=== PATIENT | female | born 1975 | race Caucasian/White ===

== ENCOUNTER → 2018-06-11 15:45 | Outpatient (CLI) | payer OTHER, SELFPAY ==
--- NOTE | 2018-06-11 15:57 | CT_ITS ---
STUDY: CT ABDOMEN AND PELVIS WITHOUT CONTRAST REASON FOR EXAM: Female, 42 years old. Right lower abdominal pain RADIATION DOSAGE (If Supplied By Facility): CTDIvol = ( 8.33 ) mGy, DLP = ( 370.94 ) mGycm TECHNIQUE: Transaxial images were obtained from the dome of the diaphragm to the symphysis pubis without oral contrast, and without intravenous contrast. Sagittal and coronal images were reconstructed. Individualized dose optimization techniques were used for this CT. COMPARISON: None. FINDINGS: The visualized lung bases are unremarkable. The visualized portions of the heart are within normal limits. Normal liver. There are surgical clips in the gallbladder fossa consistent with a prior cholecystectomy. Normal spleen. Normal pancreas. Normal bilateral adrenal glands. Normal right kidney. Normal left kidney. Normal visualized stomach. Normal small intestine. Retained stool noted throughout the colon. There is non-visualization of the appendix. Normal abdominal aorta. Normal inferior vena cava. Normal retroperitoneum. Normal urinary bladder. Normal-appearing uterus. There has been previous tubal ligation. There is a small amount of free fluid in the dependent pelvis Normal abdominal wall. Normal osseous structures. CT/Abdomen/Pelvis without Cont IMPRESSION: No suspicious solid organ abnormality No free intraperitoneal fluid, air, or suspicious adenopathy Retained stool in the colon Minimal amount of free fluid in the dependent pelvis, likely physiologic Electronically Signed: Braden Kelly MD at 16:31 EDT , Service support ,
[2018-06-11 17:20] LABS: Absolute Lymphocyte Count 2.68 X10^3/ul (0.83-4.51); Absolute Neutrophil Count 2.8 X10^3/uL (2.0-7.7); Basophil# 0.02 X10^3/uL; Basophil% 0.3 % (0-1); Eosinophil# 0.07 X10^3/uL; Eosinophils% 1.1 % (0-5); Hematocrit 44.4 % (37-47); Hemoglobin 14.7 g/dl (12.0-15.0); Lymphocyte # 2.68 X10^3/ul (4.0); Lymphocyte % 43.8 % (19-41); Mean Corp Hgb Conc 33.1 g/gl (32-36); Mean Corpuscular Hgb 30.6 pg (27.0-32.0); Mean Corpuscular Volume 92.5 fL (81-99); Mean Platelet Vol. 9.8 fl (6.2-12.0); Monocyte# 0.59 X10^3/uL; Monocyte% 9.6 % (0-10); Neutrophil # 2.76 X10^3/uL (2.7-7.7); Neutrophil % 45.2 % (47-70); Platelet Count 271 K/mm3 (150-450); RBC Distribution Width CV 12.7 % (11.6-14.6); RBC Distribution Width SD 42.7 fl (35.1-43.9); White Blood Count 6.1 K/mm3 (4.4-11.0)
[2018-06-11 17:22] LABS: POSITIVE COUNT NO; POSITIVE DIFFERENTIAL NO; POSITIVE MORPHOLOGY NO
[2018-06-11 18:04] LABS: ALB/GLOB Ratio 1.1 RATIO (0.9-2.4); AST(SGOT) 16 U/L (15-37); Alanine Aminotransfer ALT/SGPT 20 U/L (13-56); Albumin, Serum 3.9 g/dL (3.2-5.0); Alkaline Phosphatase 56 U/L (45-117); Anion Gap 9 (5-15); BUN 13 mg/dL (7-18); BUN/Creat Ratio 17.7 RATIO (10-20); Calcium,Total 8.7 mg/dL (8.5-10.1); Chloride 105 mmol/L (98-107); Creatinine, Serum 0.74 mg/dL (0.55-1.02); EST Glomerular Filtration Rate 91 mL/min (>60); Est Glom Filt Rate - Afr Amer 111 mL/min (>60); Globulin 3.5 g/dL (2.2-4.2); Glucose 79 mg/dL (74-106); Potassium 3.8 mmol/L (3.5-5.1); Protein, Total 7.4 g/dL (6.4-8.2); Sodium Level 142 mmol/L (136-145)
== END ==
PROVIDERS: Family Provider Internal Medicine; PCP Internal Medicine; Visit Provider Internal Medicine
DX: R10.31 Right lower quadrant pain (principal)
CPT/HCPCS: 36415; 74176; 80053; 85025; 87086

== ENCOUNTER → 2018-06-12 12:28 | Outpatient (CLI) | payer OTHER, SELFPAY | PROVIDERS: Family Provider Internal Medicine; PCP Internal Medicine; Visit Provider Internal Medicine | DX: R10.31 Right lower quadrant pain (principal) | CPT/HCPCS: 76830; 76856; 93976 ==

== ENCOUNTER → 2018-06-13 12:23 | Outpatient (CLI) | payer OTHER, SELFPAY ==
[2018-06-13 12:29] LABS: Absolute Lymphocyte Count 1.79 X10^3/ul (0.83-4.51); Absolute Neutrophil Count 2.5 X10^3/uL (2.0-7.7); Basophil# 0.02 X10^3/uL; Basophil% 0.4 % (0-1); Eosinophil# 0.04 X10^3/uL; Eosinophils% 0.9 % (0-5); Hematocrit 45.8 % (37-47); Hemoglobin 15.5 g/dl (12.0-15.0); Lymphocyte # 1.79 X10^3/ul (4.0); Lymphocyte % 39.1 % (19-41); Mean Corp Hgb Conc 33.8 g/gl (32-36); Mean Corpuscular Hgb 31.1 pg (27.0-32.0); Mean Platelet Vol. 9.4 fl (6.2-12.0); Monocyte# 0.27 X10^3/uL; Monocyte% 5.9 % (0-10); Neutrophil # 2.46 X10^3/uL (2.7-7.7); Neutrophil % 53.7 % (47-70); Platelet Count 280 K/mm3 (150-450); RBC Distribution Width CV 12.4 % (11.6-14.6); RBC Distribution Width SD 41.4 fl (35.1-43.9); Red Blood Count 4.98 M/mm3 (4.2-5.4); White Blood Count 4.6 K/mm3 (4.4-11.0)
[2018-06-13 12:32] LABS: Erythrocyte Sedimentation Rate 2 mm/hr (0-20)
[2018-06-13 12:33] LABS: POSITIVE COUNT NO; POSITIVE DIFFERENTIAL NO; POSITIVE MORPHOLOGY NO
[2018-06-13 12:57] LABS: CRP < 2.90 mg/L (0.0-3.0)
== END ==
PROVIDERS: Family Provider Internal Medicine; PCP Internal Medicine; Visit Provider Internal Medicine
DX: R10.31 Right lower quadrant pain (principal)
CPT/HCPCS: 85025; 85652; 86140

== ENCOUNTER → 2019-02-24 13:09 | Outpatient (CLI) | payer SELFPAY ==
--- NOTE | 2019-02-24 13:15 | CT_ITS ---
STUDY: CARDIAC CALCIUM SCORING - CT CHEST REASON FOR EXAM: Female, 43 years old. Coronary calcium screening, over read. RADIATION DOSAGE (If Supplied By Facility): DLP = ( 219.42 ) mGycm TECHNIQUE: Axial non-enhanced images were acquired through the heart for the sole purpose of measuring coronary artery calcium. Individualized dose optimization techniques were used for this CT. COMPARISON: None. FINDINGS: Body wall soft tissues: No acute process. Upper abdomen: Cholecystectomy. Right adrenal nodule measuring 3.1 cm, central density 27 Hounsfield units. This cannot be reliably characterized as a benign lipid rich adrenal adenoma based on density characteristics. The left adrenal gland is normal. Follow-up characterization of the right adrenal gland with adrenal MRI is recommended. Osseous structures: No acute process. Minimal spondylosis. Mediastinum: Normal esophagus. No visualized mass or lymphadenopathy. Lungs: Evaluated portions of the lungs and airways exhibits no acute process. There is minimal subpleural reticulation in the lower lungs bilaterally which may be a manifestation of smoking history. Clinically correlate smoking history. There is no significant pulmonary hyperlucency and there are no visible features of emphysema. Aorta: Nondilated. Pulmonary arteries: Nondilated. IVC and SVC: Normal. Pulmonary veins normal. Heart: Normal cardiac size without pericardial effusion. Minimal calcification of the aortic valve leaflets and annulus. Coronary arteries: The right and left coronary arteries each emerge from the appropriate coronary sinus with right coronary dominance to the PDA. No visible coronary calcifications. CT/Limited Chest CT w/CCTA IMPRESSION: The coronary calcium score is reported under separate cover with cardiology. Please see that report. No acute thoracic process is evident. Right adrenal nodule, incompletely characterized. Follow-up adrenal MRI is recommended. Electronically Signed: Dante Olson MD at 15:27 EDT Tel , Service support ,
[2019-02-24 13:29] VITALS: BP 116/69; PULSE 66; RESP 16; O2SAT 99; BMI 25.7
--- NOTE | 2019-02-24 17:08 | CA.SCORE ---
Calcium Scoring Date of Study:: 02/24/19 Coronary Calcium Scoring: High-resolution Computed Tomographic imaging of the chest was performed on 02-14-19, with particular attention paid to the coronary arteries. Images from the examination were analyzed for the presence and extent of coronary artery calcification , using coronary calcium quantification software. The patient tolerated the procedure well and there were no complications. The results of the coronary calcification analysis are provided below. - Findings Left Main (LM): 0 Left Anterior Descending (LAD): 0 Left Circumflex (LCX): 0 Right Coronary Artery (RCA): 0 Total Agatston Score: 0 Percentile Rankin - 50% of people the same gender and similar age had the same or lower score - Conclusion Calcium Scoring Interpretation: Calcium Score Interpretation 0 No identifiable atherosclerotic plaque. Very low cardiovascular disease risk. <5% chance of presence coronary artery disease A Negative Examination 1-10 Minimal Plaque burden. Significant coronary artery disease very unlikely. 11-100 Mild plaque burden. Likely mild or minimal coronary atherosclerosis. 101-400 Moderate plaque burden Moderate non-obstructive coronary artery disease highly likely. Over 400 Extensive plaque burden. High likelihood of at least one significant coronary stenosis (>50% diameter) Calcium Score: 0 Negative Examination - Continue cardiovascular risk factor evaluation and care as deemed appropriate
== END ==
PROVIDERS: Family Provider Internal Medicine; PCP Internal Medicine; Referring Provider Internal Medicine; Visit Provider Internal Medicine
DX: Z82.49 Family history of ischemic heart disease and other diseases of the circulatory system (principal)
CPT/HCPCS: 75571; 76380

== ENCOUNTER → 2019-03-10 | Outpatient (CLI) | payer OTHER, SELFPAY ==
[2019-02-24 13:29] VITALS: BMI 25.7
--- NOTE | 2019-03-10 09:47 | RAD_ITS ---
STUDY: X-RAY - RIGHT FOOT CLINICAL: Female, 43 years old. Right foot pain TECHNIQUE: 3 view(s) of the foot. COMPARISON: None. FINDINGS: Normal talus, calcaneus, and tarsal bones. Normal visualized subtalar, talonavicular, calcaneocuboid, tarsal and tarsometatarsal articulations. Normal metatarsi. Normal metatarsophalangeal joint of the great toe. Normal tibial and fibular sesamoid bones. Normal interphalangeal joint of the great toe. Normal phalanges of the great toe. Normal second through fifth metatarsophalangeal joints. Normal interphalangeal joints and phalanges of the lesser toes. The soft tissue structures are unremarkable. RAD/Foot min 3 Views IMPRESSION: Normal x-ray examination of the foot. Electronically Signed: Haile Rajput DO at 17:44 EDT Tel , Service support ,
== END | disposition home or self-care (01) ==
LOC: HPRAD 09:45
PROVIDERS: Family Provider Internal Medicine; PCP Internal Medicine; Referring Provider Internal Medicine; Visit Provider Internal Medicine
DX: S99.929A Unspecified injury of unspecified foot, initial encounter (principal)
CPT/HCPCS: 73630

== ENCOUNTER → 2019-03-30 06:48 | Outpatient (CLI) | payer OTHER, SELFPAY ==
[2019-02-24 13:29] VITALS: BMI 25.7
--- NOTE | 2019-03-30 06:52 | MRI_ITS ---
STUDY: MRI ABDOMEN WITHOUT CONTRAST REASON FOR EXAM: Female, 43 years old. Adrenal mass, follow-up CT scan. TECHNIQUE: Standardized fat and water weighted pulse sequences were obtained in all 3 orthogonal planes. COMPARISON: CT coronary calcium scoring 02/24/2019. CT abdomen and pelvis 06/11/2018 FINDINGS: Body wall soft tissues: No acute process. Osseous structures: No acute process. Inferior chest: No acute process. Hepatobiliary: No acute process. Pancreas: No acute process. Spleen: No acute process. Kidneys: Evaluated portions exhibit no acute process. Retroperitoneum: No mass or lymphadenopathy. Stomach: Normal. Bowel: Evaluated portions of the small and large bowel exhibits no acute process. There is a moderately prominent distributed stool burden of large bowel, somewhat conspicuous. Correlate for any symptoms of constipation. Adrenal glands: Normal. There is no adrenal nodule. The appearance on the CT coronary calcium examination was deceiving. The inferior portion of the scan terminated with a partial view of the right adrenal gland and a partial view of the right renal superior pole immediately adjacent. This gave the impression of the right adrenal nodule. MRI/Abdomen without Contrast IMPRESSION: There is no adrenal nodule. No other acute abdominal process is evident. Electronically Signed: Dante Olson MD at 16:00 EDT Tel , Service support ,
== END ==
PROVIDERS: Family Provider Internal Medicine; PCP Internal Medicine; Referring Provider Internal Medicine; Visit Provider Internal Medicine
DX: E27.9 Disorder of adrenal gland, unspecified (principal)
CPT/HCPCS: 74181

== ENCOUNTER → 2019-08-28 11:58 | Outpatient (CLI) | payer OTHER, SELFPAY ==
[2019-02-24 13:29] VITALS: BMI 25.7
[2019-08-28 12:02] LABS: Red Blood Cells-Urine 0 SEEN /hpf (0-5); White Blood Cells 0 SEEN /hpf (0-5)
[2019-08-28 12:08] LABS: Erythrocyte Sedimentation Rate 4 mm/hr (0-20)
[2019-08-28 12:14] LABS: Color, Urine Yellow (Yellow); Glucose, Dipstick Normal (Normal); Leukocyte Esterase-Dipstick Negative /ul (Negative); Nitrite-Dipstick Negative (Negative); Occult Blood-Urine Negative /ul (Negative); Protein-Dipstick Negative (Negative); Specific Gravity, Urine 1.015 (1.002-1.030); Urine Bilirubin Dipstick Negative (Negative); Urine Clarity Sl. Cloudy (Clear); Urine Urobilinogen Normal (Normal)
[2019-08-28 12:29] LABS: Ketone-Dipstick 150 mg/dl (Negative)
[2019-08-28 12:31] LABS: Hematocrit 44.1 % (37-47); Mean Corpuscular Hgb 31.3 pg (27.0-32.0); Mean Corpuscular Volume 91.9 fL (81-99); Mean Platelet Vol. 9.9 fl (6.2-12.0); Platelet Count 272 K/mm3 (150-450); RBC Distribution Width CV 11.9 % (11.6-14.6); RBC Distribution Width SD 40.1 fl (35.1-43.9); White Blood Count 5.4 K/mm3 (4.4-11.0)
[2019-08-28 12:38] LABS: D-Dimer Quantitative (DVT/PE) 0.27 FEU/ug/m (0.27-0.49)
[2019-08-28 12:40] LABS: Bacteria 2+ /hpf (None Seen); Mucous, Urine 1+ /hpf (<or=2+); Squamous Epithelial Cells - UA 0-5 SEEN /hpf (5-10)
[2019-08-28 12:48] LABS: ALB/GLOB Ratio 1.2 RATIO (0.9-2.4); AST(SGOT) 18 U/L (15-37); Alanine Aminotransfer ALT/SGPT 19 U/L (13-56); Albumin, Serum 4.1 g/dL (3.2-5.0); Alkaline Phosphatase 48 U/L (45-117); Anion Gap 8 (5-15); BUN 12 mg/dL (7-18); BUN/Creat Ratio 18.6 RATIO (10-20); CRP < 2.90 mg/L (0.0-3.0); Calcium,Total 8.7 mg/dL (8.5-10.1); Chloride 104 mmol/L (98-107); Cholesterol 269 mg/dL (200); Creatinine, Serum 0.64 mg/dL (0.55-1.02); EST Glomerular Filtration Rate 106 mL/min (>60); Est Glom Filt Rate - Afr Amer 128 mL/min (>60); Globulin 3.5 g/dL (2.2-4.2); Glucose 71 mg/dL (74-106); High Density Lipoprotein 72 mg/dL; Potassium 3.6 mmol/L (3.5-5.1); Protein, Total 7.6 g/dL (6.4-8.2); Sodium Level 138 mmol/L (136-145); Thyroid Stim Hormone (TSH) 1.54 uIU/mL (0.358-3.74); Triglycerides 63 mg/dL; Very Low Density Lipoprotein 13 mg/dL (5-40); Vitamin B12 645 pg/mL (211-911); Vitamin D,25 Hydroxy 30.7 ng/mL (29.95-100.01)
== END ==
PROVIDERS: PCP Internal Medicine; Visit Provider Internal Medicine
DX: E78.00 Pure hypercholesterolemia, unspecified (principal); R53.83 Other fatigue; R07.9 Chest pain, unspecified
CPT/HCPCS: 80053; 80061; 81001; 82306; 82607; 84443; 84484; 85027; 85379; 85652; 86140

== ENCOUNTER → 2019-12-01 13:10 | Outpatient (CLI) | payer OTHER, SELFPAY ==
[2019-12-01 13:03] VITALS: BMI 25.7
--- NOTE | 2019-12-01 13:11 | RAD_ITS ---
STUDY: X-RAY - RIGHT ELBOW REASON FOR EXAM: Female, 44 years old. INCREASING MEDIAL ELBOW PAIN TECHNIQUE: 3 view(s) of the elbow. COMPARISON: None. FINDINGS: Normal visualized humerus, radius and ulna. Normal radiocapitellar and ulnotrochlear articulations. The soft tissue structures are unremarkable. RAD/Elbow min 3 Views IMPRESSION: Normal x-ray examination of the elbow. Electronically Signed: Javier Holley, at 13:50 EST , Service support ,
== END ==
PROVIDERS: PCP Internal Medicine; Referring Provider Orthopaedic Surgery; Visit Provider Orthopaedic Surgery
DX: M25.529 Pain in unspecified elbow (principal)
CPT/HCPCS: 73080

== ENCOUNTER → 2021-01-17 07:41 | Outpatient (CLI) | payer OTHER, SELFPAY ==
[2020-03-10 08:11] VITALS: BMI 25.7
--- NOTE | 2021-01-17 07:44 | BI_ITS ---
MAMMOGRAPHY - BILATERAL SCREENING 3-D TOMOSYNTHESIS REASON FOR EXAM: Female, 45 years old. SCREENING PERTINENT HISTORY: No significant family history. TECHNIQUE: 2-D mammograms and 3-D Tomosynthesis of the breast (s) were performed. CAD was performed. COMPARISON: 2018 FINDINGS: The breast composition is heterogeneously dense that can obscure small breast masses. Scattered benign calcifications are seen. No dense spiculated masses or suspicious microcalcifications are identified. No architectural distortion is identified. There is no skin thickening or retraction. There has been no significant change since the prior study. BI/SCRN MAMM (CAD)W/JONH BILAT IMPRESSION: No mammographic signs of malignancy. Routine yearly mammograms recommended. ASSESSMENT CATEGORY: BIRADS Category 2: Benign. A letter regarding these results will be sent to the patient by the facility within 30 days. FOLLOW UP RECOMMENDATION: Yearly follow up mammogram recommended. (A) Approximately 10% of breast cancers are not detected by mammography. A normal mammogram should not delay biopsy of a clinically suspicious abnormality. Electronically Signed: Braden Kelly MD at 9:13 EDT , Service support ,
== END ==
PROVIDERS: PCP Internal Medicine; Referring Provider Internal Medicine; Visit Provider Internal Medicine
DX: Z12.31 Encounter for screening mammogram for malignant neoplasm of breast (principal)
CPT/HCPCS: 77063; 77067

== ENCOUNTER 2022-04-12 13:22 | Day surgery (SDC) | payer OTHER, SELFPAY ==
[2022-04-12] VITALS (8 sets, daily range): BP systolic 101–113; BP diastolic 68–84; PULSE 54–65; RESP 15–18; TEMP 36.8–37.2; O2SAT 99–100; BMI 28.8
[2022-04-12] MEDS: Lactated Ringers 1,000 ML 15 ML IV (13:58)
[2022-04-12 14:00] LABS: Internal QC Validated? YES +Cl - CLEAR BKGD; Pregnancy, Urine Negative Negative
[2022-04-12 14:06] LABS: Hematocrit 41.5 % (37-47); Hemoglobin 14.2 g/dL (12.0-15.0); Mean Corp Hgb Conc 34.2 g/dL (32-36); Mean Corpuscular Hgb 31.3 pg (27.0-32.0); Mean Corpuscular Volume 91.4 fL (81-99); Mean Platelet Vol. 9.4 fl (6.2-12.0); Platelet Count 292 K/mm3 (150-450); RBC Distribution Width CV 12.1 % (11.6-14.6); RBC Distribution Width SD 40.2 fl (35.1-43.9); Red Blood Count 4.54 M/mm3 (4.2-5.4); White Blood Count 5.7 K/mm3 (4.4-11.0)
--- NOTE | 2022-04-12 14:55 | ECC_PTH ---
PATIENT: ROSA FITZGERALD LOC: [facility] [place] U#:[id number] AGE/SX: 46/F ROOM: RE04/12/[address]: Dr. Mihaela Mcclellan, MDDOB: 1975 BED: DIS: 04/12/2022 SPEC #: [id number] RECD: 04/12/22 16:20 STATUS: GORDY KATIUSKA #: [id number] CHINEDU: 04/12/22 14:[address]: Mihaela Mcclellan DEPT: SURGICAL PATHOLOGY RECD BY: Hansa Conroy ENTERED: 04/13/22 08:58 SP TYPE: ECC ELIZABETH DR: Dr. Yareli Bowser, Tissues: Endocervical Procedures: Surgery Specimen Level IV HEADER OPERATION: Hysteroscopy, D & C Symphion, polypectomy PRE-OP DIAGNOSIS: Endocervical polyp TISSUE SUBMITTED: Endocervical curettings and endocervical polyp MICROSCOPIC DIAGNOSIS Endocervical curettings and endocervical polyp, polypectomy: Fragments of benign ecto- and endocervical mucosa with chronic inflammation and squamous metaplasia mixed with polypoid fragments of endocervical mucosa consistent with endocervical polyp, blood and mucous. SABA:junior 04/17/2022 MICROSCOPIC DESCRIPTION Slides are reviewed. GROSS DESCRIPTION Received in fixative is one container labeled with the patient's name and designated endocervical curettings and endocervical polyp. The specimen consists of multiple fragments of hemorrhagic soft tissue mixed with durand mucoid tissue that in aggregate measure 3 x 2.5 x 0.3 cm. The specimen is totally submitted in one cassette. / SABA:junior 04/13/2022 TC:5 CPT: 35998
--- NOTE | 2022-04-12 15:28 | DCINST_ITS ---
Discharge Instructions Procedure D&C Diet Discharge Diet: No restrictions Activity May resume sexual activity in: 1 week Dressing / Incision Call your doctor if you observe: Fever of 101 or Higher, Inability to urinate, Using more than 1 pad per hour and Uncontrolled pain Follow Up Care Please Follow Up With: Mihaela Mcclellan MD When: 1-2 weeks post OP if you need an appointment please call [phone] Test Results: Test results from this visit will be discussed in further detail at your follow- up appointment, if applicable. Discharge Plan Admission Attending Provider: Mihaela Mcclellan Primary Care Provider: Yareli Bowser Discharge Orders/Prescriptions Prescriptions: No Action NK Referrals / Follow Up: Yareli Bowser, [Primary Care Provider] - Disposition Disposition (needs filled in before D/C Order can be placed): Home, Self Care
--- NOTE | 2022-04-12 15:29 | PCM.OPRPT ---
Problems Associated Problem List Diagnoses (1) Abnormal uterine bleeding (AUB): (2) Endocervical polyp: (3) S/P endometrial ablation: Report of Operation Date of Procedure: 04/12/22 Pre-Operative Diagnosis: AUB, endocervical polyp, s/p endometrial ablation Post-Operative Diagnosis: same Surgery/Procedure Performed:: Hysteroscopy, Dilation of cervix, Endocervical curettings, endocervical polyp Description of Surgical Findings:: Unable to pass uterine sound pass internal cervical os. endocervical polyp noted on hysteroscopy. Surgeon: Mihaela Mcclellan Type of Anesthesia: Local and MAC Special Medications: 1% lidocaine Specimen's removed: endocervical curetting, endocervical polyp Estimated Blood Loss (mL): 5 Fluids Replaced: 700 Description of Procedure: Informed consent was obtained the patient was taken the operating room she was placed in supine position. She was given anesthesia. She was then placed in the [facility] where she was prepped and draped in the normal sterile fashion. At this time the weighted speculum was placed in the posterior fornix of vagina. Single-tooth tenaculum was used to gently grasp the anterior lip the cervix. 10cc 1% lidocaine given as paracervical block. uterine sound not able to be passed past internal cervical os- stenotic. Gentle dilatation was performed of external cervical os. once adequate dilatation of the cervix was achieved the hysteroscope using normal saline as a distention medium was placed. endocervical polyp appreciated. Symphion resecting device used to perform polypectomy. Sharp ECC performed as well. . Tissue will be sent to pathology for evaluation. Tenaculum removed. Good hemostasis. Instrument, lap count correct x 2. Vaginal Sweep was negative. Grafts/Implants Used: none Procedure Start Time: 15:49 Procedure Stop Time: 16:04 Complications none Admit VTE Documentation VTE Present on Admission: Yes VTE Mechan Device Prophylaxis: SCD's VTE Pharm Prophylaxis ordered?: No Reason prophylaxis not ordered:: Procedure Not Indicated
[2022-04-12] MEDS: Lidocaine 1% (20 ml mdv) 20 ML Vial (15:55)
== END 2022-04-12 17:29 | disposition home or self-care (01) ==
LOC: SDC 13:25 → AC 13:26
PROVIDERS: PCP Internal Medicine; Referring Provider Obstetrics & Gynecology; Visit Provider Obstetrics & Gynecology
PROC: 0UB98ZZ Excision of Uterus, Via Natural or Artificial Opening Endoscopic (ICD-10-PCS; CPT 58558; principal; 2022-04-12 14:40)
DX: N84.1 Polyp of cervix uteri (principal); N85.8 Other specified noninflammatory disorders of uterus; N87.9 Dysplasia of cervix uteri, unspecified; Z87.891 Personal history of nicotine dependence
CPT/HCPCS: 58558; 81025; 85027; 88305; J7120; J2405

== ENCOUNTER → 2022-07-17 | Outpatient (CLI) | payer OTHER, SELFPAY ==
[2022-07-17 10:06] LABS: Absolute Lymphocyte Count 1.85 X10^3/uL (0.83-4.51); Absolute Neutrophil Count 2.9 X10^3/uL (2.0-7.7); Basophil# 0.03 X10^3/uL; Basophil% 0.6 % (0-1); Eosinophil# 0.09 X10^3/uL; Eosinophils% 1.7 % (0-5); Hematocrit 44.2 % (37-47); Hemoglobin 15.4 g/dL (12.0-15.0); Lymphocyte # 1.85 X10^3/ul (0.83-4.51); Lymphocyte % 34.9 % (19-41); Mean Corp Hgb Conc 34.8 g/dL (32-36); Mean Corpuscular Hgb 31.8 pg (27.0-32.0); Mean Corpuscular Volume 91.3 fL (81-99); Mean Platelet Vol. 9.5 fl (6.2-12.0); Monocyte# 0.45 X10^3/uL; Monocyte% 8.5 % (0-10); NRBC Flagged by Analyzer 0 % (0-5); Neutrophil # 2.86 X10^3/uL (2.7-7.7); Neutrophil % 53.9 % (47-70); Platelet Count 304 K/mm3 (150-450); RBC Distribution Width CV 12.2 % (11.6-14.6); Red Blood Count 4.84 M/mm3 (4.2-5.4); White Blood Count 5.3 K/mm3 (4.4-11.0)
[2022-07-17 10:17] LABS: Erythrocyte Sedimentation Rate 6 mm/hr (0-30)
--- NOTE | 2022-07-17 12:13 | US_ITS ---
STUDY: ULTRASOUND OF THE FEMALE PELVIS - COMPLETE REASON FOR EXAM: Female, 46 years old. RLQ PAIN LMP: No LMP due to ablation. TECHNIQUE: Transabdominal TECHNICAL QUALITY: Adequate. COMPARISON: None. FINDINGS: The uterus is anteverted and is in a midline position. The uterus measures 8.7 cm x 6.5 cm x 2.9 cm. Normal uterine cervix. The endometrium measures 2.8 mm in thickness, and is . There is no demonstrated endometrial mass. There is a 2.6 cm x 1.8 cm x 1.7 cm uterine fibroid. I.U.D. - The patient does not have an I.U.D. The right ovary is visualized. The right ovary measures 2.8 cm x 2.3 cm x 1.4 cm. Follicles are seen within the ovary. There is no visualized right adnexal mass or complex lesion. There is normal arterial and normal venous vascularity. The left ovary is visualized. The left ovary measures 2.2 cm x 1.8 cm x 1.1 cm. Follicles are seen in the ovary. There is no visualized left adnexal mass or complex lesion. There is normal arterial and normal venous vascularity. There is no fluid in the cul-de-sac. The pre void volume of the bladder was 1300 ml. US/Pelvic (Non ) IMPRESSION: Uterine fibroid. Follicles are seen in both ovaries. Electronically Signed: Javier Holley MD at 13:55 EDT ,
[2022-07-17 20:16] LABS: ALB/GLOB Ratio 1.1 RATIO (0.9-2.4); AST(SGOT) 19 U/L (15-37); Alanine Aminotransfer ALT/SGPT 18 U/L (13-56); Albumin, Serum 3.9 g/dL (3.2-5.0); Alkaline Phosphatase 55 U/L (45-117); Anion Gap 4 (5-15); BUN 14 mg/dL (7-18); BUN/Creat Ratio 20.7 RATIO (10-20); CRP < 2.90 mg/L (0.0-3.0); Calcium,Total 9.7 mg/dL (8.5-10.1); Chloride 107 mmol/L (98-107); Creatinine, Serum 0.68 mg/dL (0.55-1.02); EST Glomerular Filtration Rate 99 mL/min (>60); Est Glom Filt Rate - Afr Amer 120 mL/min (>60); Globulin 3.5 g/dL (2.2-4.2); Glucose 88 mg/dL (74-106); Potassium 4.5 mmol/L (3.5-5.1); Protein, Total 7.4 g/dL (6.4-8.2); Sodium Level 139 mmol/L (136-145)
== END | disposition home or self-care (01) ==
LOC: US 12:13
PROVIDERS: PCP Internal Medicine; Referring Provider Internal Medicine; Visit Provider Internal Medicine
DX: R10.31 Right lower quadrant pain (principal)
CPT/HCPCS: 76856; 80053; 85025; 85652; 86140

== ENCOUNTER → 2022-07-18 | Outpatient (CLI) | payer OTHER, SELFPAY ==
--- NOTE | 2022-07-18 11:19 | CT_ITS ---
STUDY: CT ABDOMEN AND PELVIS WITH CONTRAST REASON FOR EXAM: Female, 46 years old. R/O APPENDICITIS, RLQ PAIN RADIATION DOSAGE (If Supplied By Facility): CTDIvol = ( 10.02 ) mGy, DLP = ( 557.47 ) mGycm TECHNIQUE: Transaxial images were obtained from the dome of the diaphragm to the symphysis pubis with oral contrast. Oral and amp; IV Gastrografin and amp; 100mL Isovue-300 was administered. Sagittal and coronal images were reconstructed. Individualized dose optimization techniques were used for this CT. COMPARISON: Comparison is made with prior ultrasound of pelvis done earlier in the day as well as prior CT scan of the abdomen and pelvis dated 06/11/2018. FINDINGS: The visualized lung bases are unremarkable. The visualized portions of the heart are within normal limits. There is a 1.1 cm cyst in the inferior aspect of the caudate lobe. This was not well-seen on prior examination. There are surgical clips in the gallbladder fossa consistent with a prior cholecystectomy. Normal spleen. Normal pancreas. Normal bilateral adrenal glands. Normal right kidney. Normal left kidney. Normal visualized stomach. Normal small intestine. Normal colon. The appendix is visualized and appears normal. Normal abdominal aorta. Normal inferior vena cava. Normal retroperitoneum. Normal urinary bladder. There is a 1.7 cm involuted follicle in the right ovary. Evidence of prior bilateral tubal ligation. Normal abdominal wall. Normal osseous structures. CT/Abdomen/Pelvis WITH Contrast IMPRESSION: 1.7 cm involuting follicle in the right ovary. Electronically Signed: Javier Holley MD at 14:12 EDT ,
== END | disposition home or self-care (01) ==
LOC: CT 11:01
PROVIDERS: PCP Internal Medicine; Referring Provider Internal Medicine; Visit Provider Internal Medicine
DX: R10.31 Right lower quadrant pain (principal)
CPT/HCPCS: 74177; Q9967

== ENCOUNTER → 2022-08-21 | Outpatient (CLI) | payer SELFPAY ==
--- NOTE | 2022-08-21 13:04 | CT_ITS ---
STUDY: CT Heart Quantitative Coronary Calcium Scoring W/O Contrast Injection 08/21/2022 2:13 PM REASON FOR EXAM: Female, 46 years old. FAMILY HX OF CAD. RADIOLOGIST OVER READ ONLY. [employer] DESIGNER WILL READ CORONARIES Individualized dose optimization techniques were used for this CT. TECHNIQUE: Transaxial imaging was performed withoutIV contrast material. COMPARISON: 02.24.19. FINDINGS: There is no pneumothorax. There is no demonstrated pleural abnormality. Normal heart and pericardium with no evidence for calcifications of the coronary arteries. There is heart valve calcifications. Normal mediastinum. Normal hilar regions. Normal pulmonary arteries. There is atherosclerotic calcification of the aortic arch with tortuosity and elongation of the aortic arch and descending thoracic aorta. There are multi-level degenerative changes of the thoracic spine. There are no acute findings of the upper abdomen. CT/Limited Chest CT Cardiac Only IMPRESSION: There is heart valve calcifications. Electronically Signed: Rashid Quintana MD at 14:15 EST ,
[2022-08-21 13:23] VITALS: BP 113/62; PULSE 54; RESP 16; O2SAT 95; BMI 29.2
--- NOTE | 2022-08-21 17:30 | CA.SCORE ---
Calcium Scoring Coronary Calcium Scoring: High-resolution Computed Tomographic imaging of the chest was performed on [08/21/22 ], with particular attention paid to the coronary arteries. Images from the examination were analyzed for the presence and extent of coronary artery calcification , using coronary calcium quantification software. The patient tolerated the procedure well and there were no complications. The results of the coronary calcification analysis are provided below. Findings Coronary Artery Left Main (LM): 0 Left Anterior Descending (LAD): 0 Left Circumflex (LCX): 0 Right Coronary Artery (RCA): 0 Total Agatston Score: 0 Percentile Rankin Calcium Scoring Interpretation: 0 No identifiable atherosclerotic plaque. Very low cardiovascular disease risk. <5% chance of presence coronary artery disease A Negative Examination 1-10 Minimal Plaque burden. Significant coronary artery disease very unlikely. 11-100 Mild plaque burden. Likely mild or minimal coronary atherosclerosis. 101-400 Moderate plaque burden Moderate non-obstructive coronary artery disease highly likely. Over 400 Extensive plaque burden. High likelihood of at least one significant coronary stenosis (>50% diameter) Calcium Score: 0 Negative Examination
== END | disposition home or self-care (01) ==
LOC: CT 13:02
PROVIDERS: PCP Internal Medicine; Referring Provider Internal Medicine; Visit Provider Internal Medicine
DX: I38 Endocarditis, valve unspecified (principal); Z82.49 Family history of ischemic heart disease and other diseases of the circulatory system
CPT/HCPCS: 75571; 76380

== ENCOUNTER 2022-09-14 10:04 | Day surgery (SDC) | payer OTHER, SELFPAY ==
--- NOTE | 2022-09-03 13:20 | HP.PCM_ITS ---
History and Physical Date of Admission: 09/14/22 Pre-Op History and Physical ? HPI: The patient is a 46 year old female presenting for surgical mgmt discussion for pelvic pain, adenomyosis s/p ablation. Recent ultrasound shows asymmetrical myometrial thickening and myometrial cyst which is c/w adenomyosis. ? pre-operative visit. She is scheduled for TLH, Bilateral salpingectomy and cystoscopy, for Pelvic pain, Adenomyosis, S/p Ablation on 09/14/22. Procedure discussed along with risks, benefits and complications. Other alternatives discussed for management. Consent form signed? Yes. ? ? PAST MEDICAL HISTORY PAST MEDICAL HISTORY Diagnosis Date ? abnormal pap 1991 ? colp/Bellow-cervicitis ? Acne 08/16/2016 ? Mitral valve disorders ? ? pt denies as of 08/16/16 ? ? PAST SURGICAL HISTORY PAST SURGICAL HISTORY Procedure Laterality Date ? ABDOMINAL SURGERY HX ? ? ? CERVICAL POLYPECTOMY ? 04/12/2022 ? hysteroscopy- endocervical polypectomy- benign DM at [facility] ? COLONOSCOPY ? 06/13/2022 ? repeat in 10 years ? COLPOSCOPY CERVIX UPPER/ADJACENT VAGINA ? 10/14/1991 ? Colposcopy ? CT SCAN EXAM ? 07/18/2022 ? [facility] ? DILATION & CURETTAGE DX&/THER NONOBSTETRIC ? 10/14/1993 ? Dilation & curettage ? HAND LEFT OP SURGERY ? 02/09/2015 ? HYSTEROSCOPY, DIAGNOSTIC (SEPARATE ? 09/11/2016 ? Hysteroscopy ? INSERTION OF IUD ? 07/25/2015 ? LAPAROSCOPIC TUBAL LIGATION/RING/CLIP Bilateral 09/11/2016 ? [facility] ? LAPAROSCOPY SURG CHOLECYSTECTOMY ? 09/13/2007 ? Cholecystectomy, lap ? NOVASURE ? 09/11/2016 ? PAST SURGICAL HISTORY OF ? 10/14/1992 ? WISDOM TEETH EXTRACTION ? PAST SURGICAL HISTORY OF ? ? ? CLOSED REDUCTION OF NASAL FRACTURE ? ? ? CURRENT MEDICATIONS Current Outpatient Medications Medication Sig Dispense Refill ? ondansetron orally disintegrating (ZOFRAN ODT) 4 mg disintegrating tablet Take by mouth. ? ? ? No current facility-administered medications for this visit. ? ? ALLERGIES: Penicillins ? PERSONAL HISTORY: SOCIAL HISTORY Social History ? Tobacco Use ? Smoking status: Former ? ? Years: 14.00 ? ? Types: Cigarettes ? ? Quit date: 05/14/2009 ? ? Years since quittin.2 ? Smokeless tobacco: Never ? Tobacco comments: ? ? socially Vaping Use ? Vaping Use: Never used Substance Use Topics ? Alcohol use: Yes ? ? Comment: Occasional ? Drug use: No ? FAMILY HISTORY: FAMILY HISTORY FAMILY HISTORY Problem Relation Age of Onset ? other (artery) Mother 65 ? Heart Father ? ? ME AGE 49 stents placed ? Blood Disease Father ? ? Thrombophilia ? Cancer Maternal Grandmother ? ? LUNG ? Heart Maternal Grandfather ? ? [place] ? Blood Disease Sister ? ? Thrombophilia ? ? REVIEW OF SYMPTOMS: negative except as noted above PHYSICAL EXAMINATION: ? VITALS: Blood pressure 120/78, weight 178 lb (80.7 kg), last menstrual period 09/02/2016. ? GENERAL: The patient is well nourished, well hydrated in no acute distress. , The patient is oriented to time, place, and person. NECK: full range of motion LUNGS: Clear to auscultation bilaterally. no wheezes, rhonchi or rales HEART: Regular rate and rhythm, Normal heart sounds, and No murmurs or gallops GENITALIA: no lesion, no masses, minimal cervical prolapse. ? IMPRESSION: 46yo with pelvic pain, Adenomyosis, S/p endometrial ablation ? PLAN: TLH, Bilateral salpingectomy, cysto ? Pt has been counseled on risks/benefits and alternatives of surgery including but not limited to anesthesia, bleeding, infection, injury to pelvic structures including bowel, bladder, ureters and vessels. Pt wishes to proceed with surgery at this time. Possible need for blood transfusion reviewed. ? Consent signed. Pre and post op instructions reviewed. Post op meds ordered. ? I have reviewed and updated past medical and surgical history, medications and allergies Mihaela Muhammad MD ?8:53 AM Office Visit on 08/27/2022 Office Visit on 08/27/2022 Note shared with patient
[2022-09-10 13:05] LABS: Hemoglobin 13.4 g/dL (12.0-15.0); Mean Corp Hgb Conc 33.5 g/dL (32-36); Mean Corpuscular Hgb 30.7 pg (27.0-32.0); Mean Corpuscular Volume 91.7 fL (81-99); Mean Platelet Vol. 9.3 fl (6.2-12.0); Platelet Count 323 K/mm3 (150-450); RBC Distribution Width SD 40.9 fl (35.1-43.9); Red Blood Count 4.36 M/mm3 (4.2-5.4); White Blood Count 6.7 K/mm3 (4.4-11.0)
[2022-09-10 13:43] LABS: Magnesium 1.7 mg/dL (1.6-2.6)
[2022-09-14] VITALS (14 sets, daily range): BP systolic 101–129; BP diastolic 61–96; PULSE 57–84; RESP 15–18; TEMP 36.6–38; O2SAT 94–99; BMI 30.2
--- NOTE | 2022-09-14 | HYST_PTH ---
PATIENT: ROSA FITZGERALD LOC: [facility] [place] U#:[id number] AGE/SX: 46/F ROOM: RE09/14/[address]: Dr. Mihaela Mcclellan, MDDOB: 1975 BED: DIS: 09/14/2022 SPEC #: [id number] RECD: 09/14/22 14:49 STATUS: GORDY KATIUSKA #: [id number] CHINEDU: 09/14/22 00:[address]: Mihaela Mcclellan DEPT: SURGICAL PATHOLOGY RECD BY: Raul Muñoz ENTERED: 09/17/22 10:06 SP TYPE: HYSTERECT OTHR DR: Dr. Yareli Bowser, Tissues: Uterus, NOS Procedures: Surgery Specimen Level V HEADER OPERATION: ERAS, total laparoscopic hysterectomy, salpingectomy, cystoscopy PRE-OP DIAGNOSIS: Pelvic pain, adenomyosis, status post endometrial ablation TISSUE SUBMITTED: Cervix, uterus, bilateral fallopian tubes MICROSCOPIC DIAGNOSIS Cervix, uterus, bilateral fallopian tubes, hysterectomy and bilateral salpingectomy: Cervix ? chronic inflammation and squamous metaplasia. Endometrium ? changes consistent with s/p endometrial ablation. See comment. Myometrium ? intramural leiomyomas (largest measuring 1.5 cm in greatest dimension). Bilateral fallopian tubes - no pathologic diagnosis. SJ:rg 09/18/2022 COMMENT The endometrial lining is absent, consistent with s/p endometrial ablation. Case has been reviewed in consultation with Dr. Ryan who concurs with the above diagnosis. IDC:AM MICROSCOPIC DESCRIPTION Slides are reviewed. GROSS DESCRIPTION Received in fixative is one container labeled with the patient's name and designated uterus. The specimen consists of a uterus with attached cervix measuring 9.2 x 8 x 4 cm and weighing 108 gm. The ectocervix is grossly free of mass lesions. The endocervical canal measures 3 cm in length. The elongated endometrial cavity measures 3.5 x 2 cm. The endometrium is light durand and free of mass lesions and measures less than 0.1 cm in thickness. The myometrium measures 2 cm in average thickness and contains three rubbery nodules resembling leiomyomas ranging in size from 0.7 to 1.5 cm. Two detached fallopian tubes, not designated, are present within the specimen container. One contains a Filshie-type clip that is intact and measures 7 cm in length and 0.5 cm in average diameter. The other fallopian measures 6.5 cm in length and 0.8 cm in average diameter. Fimbrial ends are present on both fallopian tubes. Fur Blowing Machine Attendant sections are submitted in nine cassettes as follows: 1 - anterior cervix, 2 - posterior cervix, 3 & 4 - anterior uterine wall, 5 & 6 - posterior uterine wall, 7 - myometrial mass, 8 - one fallopian tube with Filshie clip, 9 - second fallopian tube with Filshie clip. / AM:junior 09/17/2022 TC:3 CPT: 06668
[2022-09-14] MEDS: dexAMETHasone 10 MG/ML Vial 8 MG IV (10:45)
[2022-09-14] MEDS: Lactated Ringers 1,000 ML 40 ML IV (10:45)
[2022-09-14 10:46] LABS: Internal QC Validated? YES +Cl - CLEAR BKGD; Pregnancy, Urine Negative Negative
[2022-09-14] MEDS: Magnesium 1 GM over 15 mins IV (10:46)
[2022-09-14] MEDS: Gabapentin 600 MG Tablet PO (11:09)
[2022-09-14] MEDS: Phenazopyridine 95 MG Tablet 190 MG PO (11:09)
[2022-09-14] MEDS: Acetaminophen 500 MG Tablet 1000 MG PO (11:10)
[2022-09-14] MEDS: Celecoxib 200 MG Capsule 400 MG PO (11:10)
[2022-09-14] MEDS: Enoxaparin 40 MG/0.4 ML Syringe SC (11:16)
--- NOTE | 2022-09-14 12:12 | DCINST_ITS ---
Discharge Instructions Diet Discharge Diet: No restrictions Activity Discharge Activity: May Not Drive (while taking narcotics. may drive when pain controlled. ) and May Shower Return to work on:: 05/04/21 May shower in (days): 1 May resume sexual activity in: 6-8 weeks Weight Bearing Status: Full weight bearing Lifting Restrictions: 20 Additional Activity Instructions:: NOTHING IN THE VAGINA x 6-8 weeks. Dressing / Incision Call your doctor if your incision/area has: Continuous Slow Oozing, Sudden Increased Bleeding, Increased Pain/ Swelling, Increased Redness, Foul Smelling Discharge and Swelling at the incision site Call your doctor if you observe: Fever of 101 or Higher, Inability to have a bowel movement, Using more than 1 pad per hour and Uncontrolled pain Change Dressing in: leave in place till F/U (you have skin glue over incision sites- do not pick off) Cleanse incision/area with: Soap & Water, Keep Dressing Clean & Dry and - (you may let soap and water run over incision sites and dab dry. ) Follow Up Care Please Follow Up With: Mihaela Mcclellan MD When: 2 weeks as scheduled for post op visit Test Results: Test results from this visit will be discussed in further detail at your follow- up appointment, if applicable. Discharge Plan Admission Attending Provider: Mihaela Mcclellan Primary Care Provider: Yareli Bowser Discharge Orders/Prescriptions Prescriptions: No Action rosuvastatin 5 mg tablet 5 mg PO QODAY escitalopram oxalate 5 mg tablet 5 mg PO DAILY Referrals / Follow Up: Yareli Bowser, [Primary Care Provider] - Disposition Disposition (needs filled in before D/C Order can be placed): Home, Self Care
--- NOTE | 2022-09-14 12:12 | OP.PCM_ITS ---
Report of Operation Date of Procedure: 09/14/22 Pre-Operative Diagnosis: Pelvic pain, adenomyosis, S/p Endometrial ablation Post-Operative Diagnosis: same Surgery/Procedure Performed:: TLH, Bilateral salpingectomy, Cysto Description of Surgical Findings:: normal tubes and ovaries. previous tubal noted with filshie clips only one filshie clip visualized. Surgeon: Mihaela Mcclellan clinical education specialist: Ogla Hurt Type of Anesthesia: General and Local Special Medications: 0.25 marcaine Specimen's removed: Uterus, cervix, bilateral fallopian tubes Drains: none Estimated Blood Loss (mL): 25 Fluids Replaced: 1200 Description of Procedure: Patient taken to OR and prepped and draped in usual sterile fashion in dorsal lithotomy position with her arms tucked in a neurologically safe and neutral position. The uterus sounded to 10 cm. The commodity director uterine manipulator was sutured into place at 12:00 position and patten was placed. Attention was turned to the abdomen. All port sites were infiltrated with.25%maracine before the incisions were made. The anterior abdominal wall was tented up with towel clamps and using a direct entry approach a 5 mm intraumbilical port was placed. Intraperitoneal placement was confirmed with the laparoscope and the pneumoperitoneum was created. The patient was placed in Trendelenburg and 5 mm right and left lower quadrant ports were placed under dir ect visualization. Air seal rapid insufflator was used. The bowel was swept away. Ovaries appeared normal. One filshie clamp one seen on the left tube. The mesosalpinx starting at fimbriated end were grasped, clamped, sealed and transected with the Ligasure. The round ligaments were divided. The anterior peritoneum was dissected down to create the bladder flap with blunt dissection and the LigaSure. The uterine arteries were isolated, clamped, sealed and cut. There was minimal back bleeding from the uterus. Straight bites on uterine artieries performed to drop them off the cuff. The commodity director was used as guide to create colpotomy using monopolar tip of ligasure. once specimen was removed attention was turned to vaginal portion. The specimen was handed off. At removed of the specimen a second filshie clip was noted and removed. The cuff was closed with interrupted 0-vicryl figure of 8 sutures. Cystoscopy was performed bilateral ureters were visualized with good efflux. hanane dder was intact. patten replaced and sponge stick placed in vagina. The pneumoperitoneum was recreated and the cuff and pedicles were hemostatic. Kahlil was placed over cuff and pedicles. The skin incisions were closed with skin glue and 3-0 monocryl in the LLQ port site. The vaginal sweep was completed by me. Grafts/Implants Used: none Grafts/Implants Used: none Procedure Start Time: 12:35 Procedure Stop Time: 13:53 Complications none Admit VTE Documentation VTE Present on Admission: Yes VTE Mechan Device Prophylaxis: SCD's VTE Pharm Prophylaxis ordered?: Yes
[2022-09-14] MEDS: Cefazolin 2 GM in 0.9% Normal Saline 100 ML IV (12:26)
[2022-09-14] MEDS: Bupivacaine 0.25% 30 ML Vial (12:35)
[2022-09-14] MEDS: Ondansetron 4 MG/2 ML Vial IV (13:00)
[2022-09-14] MEDS: Lactated Ringers @ 70 MLS/HR 70 ML IV (13:01)
[2022-09-14 13:05] LABS: Bedside Glucose 93 mg/dL (74-106)
[2022-09-14] MEDS: HYDROcodone Bitartrate/Apap 5/325 Tablet PO ×2 (16:35→17:43)
[2022-09-14 19:24] LABS: Hematocrit 36.8 % (37-47); Hemoglobin 12.3 g/dL (12.0-15.0); Mean Corp Hgb Conc 33.4 g/dL (32-36); Mean Corpuscular Hgb 30.5 pg (27.0-32.0); Mean Corpuscular Volume 91.3 fL (81-99); Mean Platelet Vol. 9.1 fl (6.2-12.0); Platelet Count 340 K/mm3 (150-450); RBC Distribution Width CV 12.1 % (11.6-14.6); RBC Distribution Width SD 40.9 fl (35.1-43.9); Red Blood Count 4.03 M/mm3 (4.2-5.4); White Blood Count 12.5 K/mm3 (4.4-11.0)
== END 2022-09-14 20:55 | disposition home or self-care (01) ==
LOC: SDC 10:09 → AC 10:09
PROVIDERS: Anesthesiology; PCP Internal Medicine; Referring Provider Obstetrics & Gynecology; Visit Provider Obstetrics & Gynecology
PROC: 0UT94ZZ Resection of Uterus, Percutaneous Endoscopic Approach (ICD-10-PCS; CPT 52000; principal; 2022-09-14 12:00)
DX: N85.8 Other specified noninflammatory disorders of uterus (principal); Z30.49 Encounter for surveillance of other contraceptives; R10.2 Pelvic and perineal pain; E78.00 Pure hypercholesterolemia, unspecified; F41.9 Anxiety disorder, unspecified
CPT/HCPCS: 52000; 58571; 00840; 36415; 81025; 82962; 83735; 85027; 86850; 86900; 86901; 88307; J7120; A4216; J2405; J3475

== ENCOUNTER 2022-10-05 11:49 | Day surgery (SDC) | payer OTHER, SELFPAY ==
[2022-10-05] VITALS (7 sets, daily range): BP systolic 104–115; BP diastolic 64–71; PULSE 68–89; RESP 16–18; TEMP 36.9–37.2; O2SAT 94–98; BMI 30.8
[2022-10-05] MEDS: Lactated Ringers 1,000 ML 15 ML IV ×3 (12:10→15:42)
--- NOTE | 2022-10-05 12:27 | PCM.HP.BLA ---
History and Physical Date of Admission: 10/05/22 Pre-Op History and Physical ? HPI: The patient is a 46 year old female presenting for pre-operative visit. She is scheduled for diagnostic laparoscopy and revision of vaginal cuff for postoperative vaginal bleeding, vaginal cuff defect less than 1 cm on 10/05/22. Procedure discussed along with risks, benefits and complications. Other alternatives discussed for management. Consent form signed? Yes. ? ? PAST MEDICAL HISTORY PAST MEDICAL HISTORY Diagnosis Date ? abnormal pap 1991 ? colp/Bellow-cervicitis ? Acne 08/16/2016 ? Mitral valve disorders ? ? pt denies as of 08/16/16 ? ? PAST SURGICAL HISTORY PAST SURGICAL HISTORY Procedure Laterality Date ? ABDOMINAL SURGERY HX ? ? ? CERVICAL POLYPECTOMY ? 04/12/2022 ? hysteroscopy- endocervical polypectomy- benign DM at [facility] ? COLONOSCOPY ? 06/13/2022 ? repeat in 10 years ? COLPOSCOPY CERVIX UPPER/ADJACENT VAGINA ? 10/14/1991 ? Colposcopy ? CT SCAN EXAM ? 07/18/2022 ? [facility] ? DILATION & CURETTAGE DX&/THER NONOBSTETRIC ? 10/14/1993 ? Dilation & curettage ? HAND LEFT OP SURGERY ? 02/09/2015 ? HYSTERECTOMY ? 09/14/2022 ? Total laparoscopic hysterectomy at [facility]- Dr. Muhammad ? HYSTEROSCOPY, DIAGNOSTIC (SEPARATE ? 09/11/2016 ? Hysteroscopy ? INSERTION OF IUD ? 07/25/2015 ? LAPAROSCOPIC TUBAL LIGATION/RING/CLIP Bilateral 09/11/2016 ? [facility] ? LAPAROSCOPY SURG CHOLECYSTECTOMY ? 09/13/2007 ? Cholecystectomy, lap ? NOVASURE ? 09/11/2016 ? PAST SURGICAL HISTORY OF ? 10/14/1992 ? WISDOM TEETH EXTRACTION ? PAST SURGICAL HISTORY OF ? ? ? CLOSED REDUCTION OF NASAL FRACTURE ? SALPINGECTOMY Bilateral 09/14/2022 ? ? ? CURRENT MEDICATIONS Current Outpatient Medications Medication Sig Dispense Refill ? rosuvastatin (CRESTOR) 5 mg tablet Take by mouth. ? ? ? escitalopram oxalate (LEXAPRO) 5 mg tablet Take by mouth. ? ? ? ondansetron orally disintegrating (ZOFRAN ODT) 4 mg disintegrating tablet Take by mouth. ? ? ? No current facility-administered medications for this visit. ? ? ALLERGIES: Penicillins ? PERSONAL HISTORY: SOCIAL HISTORY Social History ? Tobacco Use ? Smoking status: Former ? ? Years: 14.00 ? ? Types: Cigarettes ? ? Quit date: 05/14/2009 ? ? Years since quittin.4 ? Smokeless tobacco: Never ? Tobacco comments: ? ? socially Vaping Use ? Vaping Use: Never used Substance Use Topics ? Alcohol use: Yes ? ? Comment: Occasional ? Drug use: No ? FAMILY HISTORY: FAMILY HISTORY FAMILY HISTORY Problem Relation Age of Onset ? other (artery) Mother 65 ? Heart Father ? ? NM AGE 49 stents placed ? Blood Disease Father ? ? Thrombophilia ? Cancer Maternal Grandmother ? ? LUNG ? Heart Maternal Grandfather ? ? QUAD [place]PASS ? Blood Disease Sister ? ? Thrombophilia ? ? REVIEW OF SYMPTOMS: negative except as noted above PHYSICAL EXAMINATION: ? VITALS: Blood pressure 138/78, weight 176 lb (79.8 kg), last menstrual period 09/02/2016. ? GENERAL: The patient is well nourished, well hydrated in no acute distress. NECK: full range of motion Speculum: Small amount of blood in vault. Small oozing noted at cuff. Cuff appears intact but on previous digital exam there is a defect right of center that is less then 1cm. ? IMPRESSION: Vaginal cuff bleeding and cuff defect noted-approximately 3 weeks status post total laparoscopic hysterectomy bilateral salpingectomy and cystoscopy ? PLAN: Plan is for diagnostic laparoscopy with vaginal cuff revision ? Pt has been counseled on risks/benefits and alternatives of surgery including but not limited to anesthesia, bleeding, infection, injury to pelvic structures including bowel, bladder, ureters and vessels. Pt wishes to proceed with surgery at this time. Discussed we will give antibiotics prior to the start of surgery. She is afebrile at this time I do not feel she will need home-going antibiotics. She should be able to be discharged home today. ? ? I have reviewed and updated past medical and surgical history, medications and allergies Mihaela Muhammad MD Office Visit on 10/05/2022 Office Visit on 10/05/2022 Note shared with patient
[2022-10-05 12:44] LABS: Absolute Lymphocyte Count 1.83 X10^3/uL (0.83-4.51); Basophil# 0.03 X10^3/uL; Basophil% 0.5 % (0-1); Eosinophil# 0.12 X10^3/uL; Eosinophils% 1.8 % (0-5); Hematocrit 33.5 % (37-47); Hemoglobin 11.4 g/dL (12.0-15.0); Lymphocyte # 1.83 X10^3/ul (0.83-4.51); Mean Corpuscular Hgb 30.5 pg (27.0-32.0); Mean Corpuscular Volume 89.6 fL (81-99); Mean Platelet Vol. 8.7 fl (6.2-12.0); Monocyte# 0.52 X10^3/uL; NRBC Flagged by Analyzer 0 % (0-5); Neutrophil # 4.02 X10^3/uL (2.7-7.7); Neutrophil % 61.4 % (47-70); Platelet Count 541 K/mm3 (150-450); RBC Distribution Width CV 11.9 % (11.6-14.6); RBC Distribution Width SD 38.7 fl (35.1-43.9); Red Blood Count 3.74 M/mm3 (4.2-5.4); White Blood Count 6.5 K/mm3 (4.4-11.0)
[2022-10-05] MEDS: Cefotetan 2 GM in 0.9% NS 100 ML IV (13:31)
--- NOTE | 2022-10-05 14:50 | DCINST_ITS ---
Discharge Instructions Diet Discharge Diet: No restrictions Activity Discharge Activity: No Restrictions and May Shower May resume sexual activity in: - (12 weeks) Lifting Restrictions: 15lb Dressing / Incision Call your doctor if your incision/area has: Continuous Slow Oozing, Sudden Increased Bleeding, Increased Pain/ Swelling, Increased Redness, Foul Smelling Discharge and Swelling at the incision site Call your doctor if you observe: Fever of 101 or Higher, Inability to urinate, Inability to have a bowel movement, Using more than 1 pad per hour and Uncontrolled pain Suture Line Care: Avoid Pulling/Pushing Cleanse incision/area with: Keep Dressing Clean & Dry Additional Dressing/Incision Instructions:: you have skin glue over your incisions - do not pick it off. Follow Up Care Please Follow Up With: Mihaela Mcclellan MD When: 1-2 weeks Test Results: Test results from this visit will be discussed in further detail at your follow- up appointment, if applicable. Discharge Plan Admission Primary Reason for Your Visit: diagnostic laparoscopy and revision of vaginal cuff Attending Provider: Mihaela Mcclellan Primary Care Provider: Yareli Bowser Discharge Orders/Prescriptions Prescriptions: New sulfamethoxazole-trimethoprim [Bactrim DS] 800-160 mg tablet 1 tab PO BID Qty: 28 0RF metronidazole 500 mg tablet 500 mg PO BID 14 Days Qty: 28 0RF No Action rosuvastatin 5 mg tablet 5 mg PO QODAY escitalopram oxalate 5 mg tablet 5 mg PO DAILY Referrals / Follow Up: Yareli Bowser DO [Primary Care Provider] - Disposition Disposition (needs filled in before D/C Order can be placed): Home, Self Care
--- NOTE | 2022-10-05 14:55 | PCM.OPRPT ---
Report of Operation Date of Procedure: 10/05/22 Pre-Operative Diagnosis: vaginal cuff bleeding, vaginal cuff defect s/p hysterectomy Post-Operative Diagnosis: Vaginal Cuff abscess, vaginal cuff dehiscence Surgery/Procedure Performed:: diagnostic laparoscopy, Pelvic/abdominal washout, revision of vaginal cuff Description of Surgical Findings:: pelvic adhesions to the cuff there was no well defined or circumscribed pelvic abscess but when adhesions were broken up there was purulent discharge present. Surgeon: Mihaela Mcclellan court collections officer: None court collections officer: Phil Fernandez Type of Anesthesia: General and Local Special Medications: 0.5% marcaine Specimen's removed: none Drains: none Estimated Blood Loss (mL): 25cc Fluids Replaced: 1500cc Description of Procedure: Previous to coming to the operating room a speculum exam was performed in the office. There was no bowel appreciated. There was no significant defect noted in the cuff. Based on this finding I did not feel that there was a need to have general surgery present for running the bowel. Patient did not complain of any bowel symptoms she was having normal bowel movements. She did not complain of any pressure nor did she complain of any bowel protruding from the vagina. After informed consent the patient was taken to the operating room she was placed in supine position. General anesthesia was induced. Her arms were tucked at her side in a neutral and safe position. She was placed in the [facility] stirrups. She was then prepped and draped in the normal sterile fashion. At this time bladder was drained prior to the start of the procedure. Sponge stick was placed in the vagina. At this time attention was turned to the abdominal portion. Half percent Marcaine was injected into the umbilicus and the previous infraumbilical incision was reincised and a 5 mm trocar was placed under direct visualization once proper placement was appreciated the CO2 gas was used to insufflate the intra-abdominal cavity. At this time the left and right lower quadrant ports were placed again Marcaine was injected in the 5 mm trochars were placed. At this time bowel was swept away and suction irrigation was performed at this time it was noted that bowel was stuck to the vaginal cuff it was thought that we may need general surgery to come to remove this but upon better inspection and with irrigation adhesions were easily broken up and it was apparent that the bowel was adhesed higher up than the vaginal cuff. A rectal exam was performed to confirm that there was no bowel stuck directly to the vaginal cuff. At this time the right ovary was slightly adherent and noted to have a small endometrioma that was actively draining. This area was suctioned and irrigated. There was no active pelvic bleeding appreciated. There was no well-defined pelvic abscess however upon breaking up the adhesions there was purulent drainage appreciated. It was adherent to the uterosacral ligaments and the pelvic sidewalls as well as to the bowel this is all copiously irrigated and suctioned. Again there was no well defined abscess present on the cuff for in the pelvis. The entire abdominal cavity was evaluated and there was no other abscesses appreciated. At this time the cuff defect was appreciated and decision was made to go to the vaginal portion and close the defect. Instruments were secured on the abdomen and attention was then turned to the vaginal portion At this time the weighted speculum was placed and a right angle was placed to allow good visualization copious irrigation was seen coming from the vaginal defect this was suctioned. Upon inspection the cuff sutures were easily removed and the cuff was dehisced. At this time all the sutures were removed and the cuff edges were actively bleeding there was no necrosis noted. I did not feel that they needed to be debrided at this time. Decision was made to reapproximate the edges using PDS suture #1 the angles were reapproximated using [id number] fashion PDS suture #1 followed by multiple [id number] sutures to close the cuff. Excellent hemostasis was appreciated. Once the cuff was hemostatic and closed attention was then placed back in the abdominal portion. Sponge stick placed in the vagina The abdomen was then re-insufflated with CO2 the cuff was evaluated and there was no active bleeding noted intra abdominally. There were no sutures near the bowel. Again copious irrigation was performed and the irrigation was suctioned and the patient was then placed in reverse Trendelenburg to get all of the irrigation fluid out as much as possible. skyla was then placed over the vaginal cuff. At this time the procedure was deemed complete and successful. The trochars were removed skin was closed using 4-0 Monocryl. Skin glue was applied. The sponge stick was removed from the vagina. Vaginal sweep was performed by myself and negative. Instrument lap and needle count were correct x2. esol teacher assistant-assisted in manipulation of the camera and retraction of vaginal tissue retraction Grafts/Implants Used: None Procedure Start Time: 13:37 Procedure Stop Time: 14:59 Complications None Admit VTE Documentation VTE Present on Admission: Yes VTE Mechan Device Prophylaxis: SCD's VTE Pharm Prophylaxis ordered?: No Reason prophylaxis not ordered:: Procedure Not Indicated
[2022-10-05] MEDS: HYDROcodone Bitartrate/Apap 5/325 Tablet PO (16:23)
== END 2022-10-05 17:18 | disposition home or self-care (01) ==
LOC: SDC 11:52 → AC 11:54
PROVIDERS: Anesthesiology; PCP Internal Medicine; Referring Provider Obstetrics & Gynecology; Visit Provider Obstetrics & Gynecology
PROC: (CPT 49320; principal; 2022-10-05 13:00)
DX: N93.9 Abnormal uterine and vaginal bleeding, unspecified (principal); Z90.710 Acquired absence of both cervix and uterus; N76.0 Acute vaginitis; Z30.49 Encounter for surveillance of other contraceptives; F41.9 Anxiety disorder, unspecified; Z87.891 Personal history of nicotine dependence
CPT/HCPCS: 57023; 49320; 00940; 85025; 86850; 86900; 86901; 87070; 87075; 87077; 87186; 87205; J7120; J2405

== ENCOUNTER → 2024-06-18 | Outpatient (CLI) | payer OTHER, SELFPAY ==
--- NOTE | 2024-06-18 14:49 | BD_ITS ---
STUDY: DUAL ENERGY X-RAY ABSORPTIOMETRY / DXA REASON FOR EXAM: Female, 48 years old. 627.8Menopausal postmenopausalBONE DENSITY REASON FOR EXAM TECHNIQUE: Bone Mineral Density (BMD) measurements of lumbar spine and bilateral hips were obtained. COMPARISON: None. FINDINGS: Lumbar Spine (L1-L4): g/cm2 (1.111) / T-score (0.5) / Z-score (1.2) Findings are suggestive of normal bone density with a low fracture risk. Left Femur Total: g/cm2 (0.987) / T-score (0.4) / Z-score (0.8) Left Femoral Neck: g/cm2 (0.795) / T-score (-0.5) / Z-score (0.2) Right Femur Total: g/cm2 (1.020) / T-score (0.6) / Z-score (1.1) Right Femoral Neck: g/cm2 (0.833) / T-score (-0.1) / Z-score (0.6) BD/Dexa Bone Density Study IMPRESSION: The patient is considered normal as outlined below according to World [place] Organization (WHO) criteria with a low fracture risk. Reference Information: The T-score is the number of standard deviations above or below the standard which is normal for young adults at their peak bone mineral density. The World Health Organization (WHO) interprets the T-scores as follows: Above -1 Normal bone density Between -1 and -2.5 Osteopenia Equal to / or below -2.5 Osteoporosis As a practical clinical guideline, osteopenia may be graded as follows: Mild -1 through -1.5 Moderate -1.6 through -2.0 Severe -2.1 through -2.4 The Z-score is the number of standard deviations above or below age-matched controls. A Z-score of less than -1.5 would be considered abnormal. References: 1. NIH Osteoporosis and Related Bone Diseases www osteo.org 2. International Society for Clinical Densitometry www iscd.org 3. National Osteoporosis Foundation www nof.org Electronically Signed: Javier Holley MD at 13:08 EDT ,
--- NOTE | 2024-06-18 14:49 | BI_ITS ---
MAMMOGRAPHY - BILATERAL SCREENING REASON FOR EXAM: Female, 48 years old. Routine annual screening examination. PERTINENT HISTORY: Non-contributory. TECHNIQUE: Digital bilateral breast jonh (3D mammographic acquisition) in the CC and MLO projections. 2-D mediolateral oblique (MLO) and craniocaudad (CC) views of both breasts were obtained. CAD: Full Field Digital Mammography with Computer Added Detection was performed. COMPARISON: Comparison is made with prior study dated January 17, 2021. FINDINGS: Breast Composition: The breasts are extremely dense, which lowers the sensitivity of mammography. There are no dominant masses or suspicious calcifications. No other significant abnormalities are identified. There has been no significant change since the prior study. BI/SCRN MAMM (CAD)W/JONH BILAT IMPRESSION: Stable bilateral screening mammogram. Yearly follow-up mammogram recommended. (A) ASSESSMENT CATEGORY: BIRADS Category 1: Negative. A letter regarding these results will be sent to the patient by the facility within 30 days. Approximately 10% of breast cancers are not detected by mammography. A normal mammogram should not delay biopsy of a clinically suspicious abnormality. [id number] Electronically Signed: Javier Holley MD at 8:25 EDT ,
== END | disposition home or self-care (01) ==
LOC: OPBD 14:45
PROVIDERS: PCP Internal Medicine; Referring Provider Internal Medicine; Visit Provider Internal Medicine
DX: Z12.31 Encounter for screening mammogram for malignant neoplasm of breast (principal); Z78.0 Asymptomatic menopausal state
CPT/HCPCS: 77063; 77067; 77080